=== PATIENT | male | born 2000 | race Caucasian/White ===

== ENCOUNTER 2023-01-28 18:04 | Emergency (ER) | payer OTHER ==
[2023-01-28] MEDS ORDERED: Sodium Chloride 0.9% 2.5 ML Syringe FLUSH PRN (18:10)
[2023-01-28] MEDS ORDERED: Sodium Chloride 0.9% 10 ML Syringe FLUSH PRN (18:10)
[2023-01-28] MEDS ORDERED: cefTRIAXone 2 GM in Sodium Chloride 0.9% 50 ML IV STA (18:13)
[2023-01-28] MEDS ORDERED: Propofol 200 MG/20 ML SDV IVPUSH ONE (18:14)
[2023-01-28] MEDS ORDERED: propofoL 100 ML ONE (18:15)
[2023-01-28] MEDS ORDERED: Propofol 200 MG/20 ML SDV ONE (18:15)
[2023-01-28 18:40] LABS: HEMATOCRIT 15.7 % (38.0-50.0); HEMOGLOBIN 5.1 g/dL (13.0-17.0); INR 1.77 (0.86-1.11); MEAN CORPUSCULAR HEMOGLOBIN 31.5 pg (27.0-32.0); MEAN CORPUSCULAR HGB CONC 32.5 g/dL (31.0-37.0); MEAN CORPUSCULAR VOLUME 96.9 fL (80.0-98.0); NRBC ABSOLUTE 0 K/uL; NRBC PERCENT 1.4 /100WBC; PLATELET COUNT,PLT 20 K/uL (150-400); RED BLOOD CELL COUNT 1.62 M/uL (4.50-5.90)
[2023-01-28] MEDS ORDERED: VANCOmycin 2 GM/400 ML 2 GM in Premix Bag 1 BAG IV ONE (18:45)
[2023-01-28] MEDS ORDERED: niCARdipine/Normal Saline 20 MG/200 ML BAG IV SCH (18:45)
[2023-01-28] MEDS ORDERED: propofoL 100 ML IV SCH (18:45)
[2023-01-28] MEDS ORDERED: Iopamidol 755 Mg/ML 100 ML Bottle IVPUSH ONE (18:51)
[2023-01-28 18:55] LABS: LACTIC ACID 4.8 mmol/L (0.4-2.0)
[2023-01-28 18:58] LABS: A/G RATIO 1.4 (0.9-1.6); ALANINE AMINOTRANSFERASE,ALT 19 IU/L (14-63); ALBUMIN 4.3 g/dL (3.4-5.0); ALKALINE PHOSPHATASE 67 U/L (46-116); ASPARTATE AMNIOTRANSFERASE,AST 30 IU/L (15-37); BILIRUBIN TOTAL 0.8 mg/dL (0.2-1.0); BLOOD UREA NITROGEN,BUN 19 mg/dL (7.0-18.0); CARBON DIOXIDE,CO2 19.9 mmol/L (21.0-32.0); CHLORIDE,CL 99 mmol/L (98-107); CREATININE 1.2 mg/dL (0.8-1.3); EST CRCL DRUG DOSING (CG) 105.98 mL/min; ESTIMATED GFR 88 mL/min (>60); GLUCOSE RANDOM 414 mg/dL (74-106); LIPASE 60 U/L (73-393); PROTEIN TOTAL,TP 7.3 g/dL (6.4-8.2); SODIUM,NA 136 mmol/L (136-148)
[2023-01-28 18:59] LABS: ETHANOL BLOOD MEDICAL < 3.0 mg/dL
[2023-01-28] MEDS ORDERED: Rocuronium 50 MG/5 ML Vial IV STA ×2 (19:09→21:24)
[2023-01-28 19:47] LABS: BAND ABSOLUTE MAN 2.6; BAND PERCENT MAN 7 %; BLAST ABSOLUTE MAN 1.1; BLASTS PERCENT MAN 3 %; LYMPHOCYTES ABSOLUTE MAN 7.5 (0.6-2.4); LYMPHOCYTES PERCENT MAN 20 % (16.0-40.0); METAMYELOCYTE ABSOLUTE MAN 7.5; METAMYELOCYTE PERCENT MAN 20 %; MONOCYTES ABSOLUTE MAN 10.5 (0.0-0.8); MONOCYTES PERCENT MAN 28 % (0.0-15.0); MYELOCYTE ABSOLUTE MAN 4.5; MYELOCYTE PERCENT MAN 12 %; SEG NEUTROPHILS ABSOLUTE MAN 3.7 (1.4-5.7); SEG NEUTROPHILS PERCENT MAN 10 % (48.0-80.0)
[2023-01-28 19:52] LABS: APPEARANCE,URINE CLEAR; BILIRUBIN,URINE NEGATIVE (NEGATIVE); COLOR,URINE YELLOW; GLUCOSE,URINE 500 mg/dL (NEGATIVE); KETONES,URINE 15 mg/dL (NEGATIVE); LEUKOCYTE ESTERASE,URINE NEGATIVE (NEGATIVE); NITRITE,URINE NEGATIVE (NEGATIVE); OCCULT BLOOD,URINE SMALL (NEGATIVE); PROTEIN,URINE NEGATIVE (NEGATIVE); UROBILINOGEN,URINE 0.2 EU/dL (<2.0)
[2023-01-28 19:57] LABS: BACTERIA,URINE FEW (NEGATIVE); EPITHELIAL CELLS,URINE NOT SEEN (NONE-FEW); MUCUS,URINE RARE (NONE-MOD); RBC,URINE 0-5 (0-2/HPF); SQUAMOUS EPITHELIAL CELLS,UR NOT SEEN; WBC,URINE NONE SEEN (0-5/HPF)
[2023-01-28] MEDS ORDERED: MANNITOL IV ONE (20:00)
[2023-01-28] MEDS ORDERED: HUM PROTHROMBIN CPLX(PCC)4FACT 2,000 UNIT, Factor IX Complex Human 500 UNIT IV ONE ×2 (20:00)
[2023-01-28 20:01] LABS: AMPHETAMINES SCREEN, URINE NEGATIVE (CUTOFF=500); BARBITURATE SCREEN,URINE NEGATIVE (CUTOFF=200); BENZODIAZEPINES SCREEN,URINE NEGATIVE (CUTOFF=150); BUPRENORPHINE SCREEN,URINE NEGATIVE (CUTOFF=10); METHADONE SCREEN, URINE NEGATIVE (CUTOFF=200); METHAMPHETAMINES SCREEN, URINE NEGATIVE (CUTOFF=500); OXYCODONE SCREEN,URINE NEGATIVE (CUT0FF=100); PCP SCREEN,URINE NEGATIVE (CUTOFF=25); PROPOXYPHENE SCREEN,URINE NEGATIVE (CUTOFF=300); THC SCREEN,URINE 20 NG/ML NEGATIVE (CUTOFF=50)
[2023-01-28] MEDS ORDERED: Sodium Chloride 3% 250 ML IV SCH (20:45)
[2023-01-28] MEDS ORDERED: Sodium Chloride 3% 500 ML IV SCH (20:53)
[2023-01-28] MEDS ORDERED: Sodium Chloride 3% 250 ML IV ONE (21:15)
== END 2023-01-28 22:15 ==
LOC: MW.ED 18:04
DX: I62.9 Nontraumatic intracranial hemorrhage, unspecified (principal); D61.818 Other pancytopenia
CPT/HCPCS: 36415; 70450; 70496; 70498; 71045; 72125; 80053; 80305; 80307; 81001; 82947; 83605; 83690; 84443; 84484; 85025; 85379; 85610; 87040; 93005; 96365; 96366; 96368; 96375; 96376; 99291; J0696; J1953; J2704; J3370; J3490; J7060; J7131; J7168; Q9967; 93010